=== PATIENT | female | born 1955 | race Caucasian/White ===

== ENCOUNTER → 2018-12-01 07:58 | Outpatient (CLI) | payer OTHER ==
--- NOTE | ~2018-12-01 | ST ---
PATIENT:KAREEM THORNTON MEDICAL RECORD: [id number] SEX: F LOCATION:[facility] ORDER #: ADMISSION DATE: 12/01/18 AGE OF PATIENT: 63 REFERRING PHYSICIAN: INTERPRETING PHYSICIAN: BERNADETTE MILLS MD DATE OF SERVICE: 12/01/2018 INDICATION: Chest pain, abnormal ECG, hypertension, and shortness of breath. She was exercised on standard Lexiscan protocol with 33 mCi of sestamibi injected at peak stress, 11 mCi used previously for rest images. FINDINGS: Gated SPECT reveals preserved ejection fraction at 62% with good wall motion and thickening and brightening throughout all segments. SPECT imaging Cardiolite was used as myocardial fusion agent. There is homogeneous uptake throughout all segments at rest and stress with no evidence of inducible ischemia or previous infarction. OVERALL IMPRESSION: 1. This is a normal nuclear stress test with no evidence of inducible ischemia or previous infarction. 2. Gated SPECT reveals a preserved ejection fraction at 62%. In this patient with ongoing symptomatology, the current scan does not suggest the presence of hemodynamically significant coronary artery disease. Evaluate noncardiac etiology of chest pain. 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
--- NOTE | ~2018-12-01 | EC ---
PATIENT:KAREEM THORNTON DATE OF SERVICE: 12/01/18 SEX: F MEDICAL RECORD: [id number] DATE OF : 55 [facility] AGE OF PATIENT: 63 ADMISSION DATE: 12/01/18 REFERRING PHYSICIAN: INTERPRETING PHYSICIAN: BERNADETTE ELIZONDO MD ECHOCARDIOGRAM REPORT ECHO CHARGES 4 ECHO COMPLETE Date: 12/01/18 CLINICAL DIAGNOSIS: DYSPNEA ECHOCARDIOGRAPHIC MEASUREMENTS (adult normal given) AC root (d.<3.7cm) 3.1 cm LV Septum d (<1.2 cm> 1.3 cm Valve Excursion 1.7 cm LV Septum (systole) 1.6 cm Left Atria (s.<4.0cm> 4.3 cm LVPW d(<1.2cm) 1.2 cm RV (d.<2.3cm) 2.7 cm LVPW (sytole) 1.8 cm LV diastole(<5.6CM) 5.0 cm MV E-F(>70mm/sec) cm LV systole 2.6 cm LVOT Diameter 1.8 cm MV exc.(>10mm) 1.5 cm Est.ejection fraction (50-75%) % DOPPLER: LVIT cm/sec A 77.0 cm/sec E 56.0 cm/sec LA cm/sec RVSP 23 mmHg LVOT 84 cm/sec AOP1/2T m/s Asc. Ao 119 cm/sec RVOT 68 cm/sec RA cm/sec PA 105 cm/sec AV Gradient Peak 5.67 mmHg AV Mean 3.13 mmHg AV Area 1.7 cm MV Gradient Peak 3.69 mmHg MV Mean 1.47 mmHg MV Area cm COMMENTS: Scrub Woman: 2 KARENA CHEUNG Brand Analyst: 1 Dr. Elizondo TAPE# PACS Pericardial Effusion N DATE OF SERVICE: ECHOCARDIOGRAM FINDINGS: 1. Left ventricular chamber size is within normal limits. Left ventricular systolic function is normal. Overall ejection fraction estimated at 60%. 2. Left atrium, right atrium, and right ventricle size are dilated. Left atrium measures 4.3 cm. 3. Valvular structures have normal structure and motion. ECHOCARDIOGRAM REPORT [id number] KAREEM THORNTON 4. Doppler interrogation reveals mild mitral regurgitation, mild tricuspid regurgitation, no other valvular insufficiency or stenosis. Pulmonary systolic pressure is normal estimated at 23 mmHg. 5. No evidence of pericardial effusion or left ventricular thrombus. TRANSINT:[id number] Voice Confirmation ID: [id number] DOCUMENT ID: [id number] BERNADETTE ELIZONDO MD CC: JAG BUSH [id number] DICTATION DATE: 12/01/18 164 CONTRACT LOADER: 12/01/18 1848 [facility] CLI 12/01/18 [place] [id number] [place] [id number]
== END | disposition home or self-care (01) ==
LOC: D.HCCARDIO 07:58
PROVIDERS: ATTEND Internal Medicine Interventional Cardiology
DX: R07.89 Other chest pain (principal); R06.02 Shortness of breath